=== PATIENT | female | born 1980 | race Caucasian/White ===

== ENCOUNTER 2022-09-10 10:47 | Outpatient (REF) | payer OTHER, SELFPAY ==
[2022-09-10 13:58] LABS: MANUAL DIFF FLAG NO
[2022-09-10 14:18] LABS: Basophils Absolute Auto 0.1 X10*3/uL (0.0-0.2); Basophils Percent Auto 0.8 % (0-2); Eosinophils Absolute Auto 0.1 X10*3/uL (0.0-0.4); Eosinophils Percent Auto 1.9 % (0-4); Hematocrit 43.5 % (37.0-47.0); Hemoglobin 13.9 g/dl (12.0-16.0); Imm Gran Abs Auto 0.18 X10*3/uL (0.00-0.03); Imm Gran Pct Auto 2.8 % (0.0-0.4); Lymphocytes Absolute Auto 2.1 X10*3/uL (1.2-4.9); Lymphocytes Percent Auto 33.8 % (20-40); Mean Corpuscular Hemoglobin 28.6 pg (27.0-33.0); Mean Corpuscular Volume 89.5 fL (80.0-98.0); Mean Platelet Volume 10.4 fL (9.4-12.3); Monocytes Absolute Auto 0.5 X10*3/uL (0.1-1.2); Monocytes Percent Auto 7.3 % (2-11); Neutrophils Absolute Auto 3.4 x10*3/uL (2.0-8.3); Neutrophils Percent Auto 53.4 % (45-73); Platelet Count 305 X10*3/uL (160-400); Red Blood Count 4.86 X10*6/uL (4.20-5.50); Red Cell Distribution Width 12.6 % (11.0-16.0); White Blood Count 6.3 X10*3/uL (4.8-10.8)
[2022-09-10 14:49] LABS: Anion Gap 15 (12-20); Blood Urea Nitrogen 9 mg/dL (9-16); Calcium 9.4 mg/dL (8.4-10.2); Carbon Dioxide 25 mmol/L (22-29); Chloride 104 mmol/L (96-108); Cholesterol 239 mg/dL; Estimated Glomerular Filt Rate > 60; Glucose Fasting 98 mg/dL (60-99); HDL Cholesterol 52 mg/dL; LDL Cholesterol Calculated 159 mg/dl; Potassium 4.4 mmol/L (3.3-5.1); Sodium 140 mmol/L (135-145); Triglycerides 140 mg/dL
== END 2022-09-10 10:48 | disposition home or self-care (01) ==
LOC: HO.HMGCLDS 10:47
PROVIDERS: PCP Internal Medicine; Visit Provider Internal Medicine
DX: E66.01 Morbid (severe) obesity due to excess calories (principal); F32.A Depression, unspecified; F41.9 Anxiety disorder, unspecified; E55.9 Vitamin D deficiency, unspecified
CPT/HCPCS: 36415; 80048; 80061; 82306; 85025

== ENCOUNTER 2025-01-11 13:04 | Outpatient (AMB) | payer OTHER, SELFPAY ==
[2025-01-11 13:07] VITALS: BP 122/76; PULSE 76; RESP 18; TEMP 36.9; O2SAT 97; BMI 42.8
--- NOTE | 2025-01-11 13:07 | A.OFFPC_ITS ---
Vital Signs 01/11/25 13:07 Height 5 ft 2 in Weight 234 lb BMI 42.8 BP 122/76 Blood Pressure Location Rt brachial Position Sitting Respiration 18 Pulse 76 Pulse Source Pulse Oximeter Temp 98.5 F Temp Source Oral Pulse Oximetry (%) 97 Oxygen Delivery Method Room Air Intake Visit Reasons: depression & anxiety Intake Note: Pt is here today for a sick visit. Pt c/o depression and anxeity. Cloud Architect Required: No Allergies morphine Allergy (Verified 01/11/25 13:28) dizzy, sweats almost fainted acetaminophen (Percocet) Adverse Reaction (Unknown, Verified 01/11/25 13:28) stomach upset bupropion Adverse Reaction (Unknown, Verified 01/11/25 13:28) worsening depression symptoms doxycycline Adverse Reaction (Unknown, Verified 01/11/25 13:28) nightmares, GI oxycodone (Percocet) Adverse Reaction (Unknown, Verified 01/11/25 13:28) stomach upset BuPROPion HCl (XL) Adverse Reaction (Unknown, Uncoded 01/11/25 13:28) worsening depression symptoms Medication List - Last Reconciled 01/11/25 by Lakia Lindo MD celecoxib 200 mg PO DAILY cyclobenzaprine 10 mg PO BEDTIME sertraline 37.5 mg (1.5 x 25 mg) PO DAILY 90 days Tobacco use date assessed: 01/11/25 Dental Screening Dental Screen Date: 01/11/25 Did you have a dental visit in the last 12 months?: Yes Did you have a dental problem in the last 6 months where you did not have access to dental care?: No Was dental information given to patient?: Patient has dentist HPI depression & anxiety HPI Details 44-year-old lady with history of anxiety depression, , here today for follow-up. She has been doing well on sertraline 37.5 mg taken once a day. Would like to continue, tolerating medication well with no adverse effects noted. FOR[facility]LY [facility], LATER [facility] Medical History Morbid obesity due to excess calories Anxiety and depression Depression Vitamin D deficiency Surgical History History of ankle surgery Family History Father Bipolar disorder CVD (cardiovascular disease) Hyperlipidemia Mother No problems noted. Maternal Grandfather Mental health disorder Social History Housing: House Alcohol intake: never Patient Tobacco Use Status: Never used Tobacco e-Cigarette/Vaping Use: Never Used service: No Current occupational status: employed Cognitive needs: No Hearing needs: No Vision needs: Yes Questionnaire PHQ-9 Over the last 2 weeks, how often have you been bothered by any of the following problems? 1. Little interest or pleasure in doing things: several days 2. Feeling down, depressed, or hopeless: several days 3. Trouble falling or staying asleep, or sleeping too much: several days 4. Feeling tired or having little energy: several days 5. Poor appetite or overeating: not at all 6. Feeling bad about yourself - or that you are a failure or have let yourself or your family down: not at all 7. Trouble concentrating on things, such as reading the newspaper or watching television: not at all 8. Moving or speaking so slowly that other people could have noticed. Or the opposite - being so fidgety or restless that you have been moving around a lot more than usual: not at all 9. Thoughts that you would be better off or of hurting yourself in some way: not at all Total score: 4 Depression Screening Interpretation: Positive (Improving on sertraline 37.5 mg taken once a day) Depression Screening Follow-up: Existing condition and In treatment Depression Screening Done: Yes 52705 - PHQ-9 Billing: Yes Source: Developed by Drs. King Hinojosa, Nanette Granda, Oneil Beebe and colleagues, with an educational rosales from [employer]. Thrive Questionnaire Date Thrive assessed: 01/11/25 I am a: Patient What is your living situation today?: I have a steady place to live Within the past 12 months, did the food you bought not last and you didn't have the money to get more?: Never true Within the past 12 months, did you worry whether your food would run out before you got money to buy more?: Never true Do you have trouble paying for medicines?: No Do you have trouble getting transportation to medical appointments?: No Do you have trouble paying your heating and electricity bill?: No Do you have trouble taking care of your child, family member or friend?: No Do you have trouble with day-to-day activities such as bathing, preparing meals, shopping, managing finances, etc.?: No Are you currently unemployed and looking for a job?: No Are you interested in more education?: No Please select the resources that you would like help with: None Currently or been in a relationship where the following occur: No concerns reported THRIVE Score: 0 AUDIT C Alcohol Use Questionnaire (AUDIT-C) 1. How often do you have a drink containing alcohol?: Never 3. How often do you have six or more drinks on one occasion?: Never Total Score: 0 Score Reviewed/Action Taken: Yes HARI-7 AMB Questionnaire HARI-7 Date HARI - 7 assessed: 01/11/25 Feeling nervous, anxious, or on edge: 1 = Several days Not being able to stop or control worryin = Not at all Worrying too much about different things: 0 = Not at all Trouble relaxin = Not at all Being so restless that it is hard to sit still: 0 = Not at all Becoming easily annoyed or irritable: 0 = Not at all Feeling afraid as if something awful might happen: 0 = Not at all Total HARI-7 score (0-4 normal; 5-9 mild; 10-14 moderate; 15-21 severe): 1 Source: Developed by Drs. King Hinojosa, Nanette Granda, Oneil Beebe and colleagues, with an educational rosales from [employer]. HARI-7 Assessment Billing HARI-7 Assessment Tool: HARI-7 Assessment 71291 Review of Systems Const All systems reviewed & are unremarkable except as noted in HPI and below Physical exam (Primary Care) Vital Signs: Last Vital Signs Temp 98.5 F 01/11/25 13:07 Pulse 76 01/11/25 13:07 Resp 18 01/11/25 13:07 BP 122/76 01/11/25 13:07 Pulse Ox 97 01/11/25 13:07 Oxygen Delivery Method Room Air 01/11/25 13:07 BMI result Body Mass Index 42.8 BMI Assessment/Plan discussion: High BMI High, discussed plan: lifestyle, weight reduction, dietary and physical activity Tobacco/Smoking Status: Tobacco use Status Tobacco use date assessed 01/11/25 01/11/25 13:08 Patient Tobacco Use Status Never used Tobacco 01/11/25 13:08 e-Cigarette/Vaping Use Never Used 01/11/25 13:08 PHQ-9: PHQ-9 Score PHQ-9: Total score 4 01/11/25 13:43 Depression Screening Interpretation: Positive (Improving on sertraline 37.5 mg taken once a day) Depression Screening Follow-up: Existing condition and In treatment Thrive Assessment: Date of Thrive Assessment Date Thrive assessed 01/11/25 01/11/25 13:08 Currently or been in a relationship where the following occur: No concerns reported Const General: no acute distress Nutritional Appearance: obese morbidly obese Orientation/consciousness: patient oriented x3 HENMT General nose exam: Normal external nose present Mouth: Normal oral and palatal mucosa present, oropharynx normal and moist mucous membranes Eyes General: appearance normal, both eyes and all related structures Neck Neck: Yes full ROM, Yes no lymphadenopathy and Yes supple Resp Effort & Inspection: normal respiratory effort and able to speak in complete sentences Auscultation: clear to auscultation bilaterally Cardio Rate: regular rate Rhythm: regular rhythm Heart sounds: S1 normal heart sound present and S2 normal heart sound present GI Inspection: Yes normal to inspection Palpation (GI): Soft to palpation, nontender, no guarding and no masses Auscultation: normal bowel sounds Other: Sees Dr. Cabrera Neuro General: patient oriented x3, gait normal, moves all extremities and no focal motor deficits Gait exam (Neuro): Normal gait present Extrem General: Yes full ROM, Yes no joint enlargement, Yes no pedal edema and Yes normal gait Psych Appearance: grossly normal and well kempt Mental Status: mental status grossly normal Speech and movement: Normal speech and movement present Affect: normal affect Coding Level of Care Code Est Pt Level 4 (85284) Diagnoses Anxiety and depression F41.9; F32.A Morbid obesity due to excess calories E66.01 Additional Codes HARI-7 Assessment Billing - HARI-7 Assessment Tool: HARI-7 Assessment 43005 ([id number]) PHQ-9 - 48285 - PHQ-9 Billing: Yes ([id number]) Assessment & Plan Assessment & Plan (1) Anxiety and depression: Code(s): F41.9 - Anxiety disorder, unspecified; F32.A - Depression, unspecified Category: Medical Plan: Improvement in mood and anxiety attacks are occurring infrequently, continued on sertraline 37.5 mg taken daily. (2) Morbid obesity due to excess calories: Code(s): E66.01 - Morbid (severe) obesity due to excess calories Category: Medical Plan: Y Discussed need to increase activity and weight reduction. Recommended focusing on improving health instead of dieting. Mediterranean diet is a healthy diet that helps, limit food high in fat, sugar, and calories. Eat slowly, pay attention to portion sizes, plan your meals ahead of time, start regular physical activity, at least 150 minutes of moderate intensity exercise, or 90 minutes per week of vigorous exercise. Keeping a food diary, tracking what you eat and your physical activity can help assess what improvements you can make. Orders: Orders Complete Blood Count Auto Diff 03/19/25 E55.9 - Vitamin D deficiency, unspecified, E66.01 - Morbid (severe) obesity due to excess calories, F32.A - Depression, unspecified, F41.9 - Anxiety disorder, unspecified, Z13.1 - Encounter for screening for diabetes mellitus, Z13.220 - Encounter for screening for lipoid disorders Aspartate Amino Transferase 03/19/25 E55.9 - Vitamin D deficiency, unspecified, E66.01 - Morbid (severe) obesity due to excess calories, F32.A - Depression, unspecified, F41.9 - Anxiety disorder, unspecified, Z13.1 - Encounter for scre ening for diabetes mellitus, Z13.220 - Encounter for screening for lipoid disorders Basic Metabolic Panel Fasting 03/19/25 E55.9 - Vitamin D deficiency, unspecified, E66.01 - Morbid (severe) obesity due to excess calories, F32.A - Depression, unspecified, F41.9 - Anxiety disorder, unspecified, Z13.1 - Encounter for screening for diabetes mellitus, Z13.220 - Encounter for screening for lipoid disorders Alanine Aminotransferase 03/19/25 E55.9 - Vitamin D deficiency, unspecified, E66.01 - Morbid (severe) obesity due to excess calories, F32.A - Depression, unspecified, F41.9 - Anxiety disorder, unspecified, Z13.1 - Encounter for screening for diabetes mellitus, Z13.220 - Encounter for screening for lipoid disorders Lipid Panel 03/19/25 E55.9 - Vitamin D deficiency, unspecified, E66.01 - Morbid (severe) obesity due to excess calories, F32.A - Depression, unspecified, F41.9 - Anxiety disorder, unspecified, Z13.1 - Encounter for screening for diabetes mellitus, Z13.220 - Encounter for screening for lipoid disorders Vitamin D 25-OH Total 03/19/25 E55.9 - Vitamin D deficiency, unspecified, E66.01 - Morbid (severe) obesity due to excess calories, F32.A - Depression, unspecified, F41.9 - Anxiety disorder, unspecified, Z13.1 - Encounter for screening for diabetes mellitus, Z13.220 - Encounter for screening for lipoid disorders Medications: Refilled sertraline 37.5 mg (1.5 x 25 mg) PO DAILY 135 tabs 4RF 90 days F33.0 - Major depressive disorder, recurrent, mild
--- OUTSIDE RECORDS SUMMARY | 2025-01-11 14:15 | XMS_ITS | Clinical Summary ---
Author Organization [facility] Address [address] [place] [address] Phone Care Team Providers Care Senior Research Analyst Name Role Phone Lakia Lindo MD Primary Care Provider Allergies Active Allergy Reactions Criticality Noted Date Comments Doxycycline Nausea And Vomiting, Sleep Issues 11/21/2024 Oxycodone-Acetaminophen Nausea And Vomiting 01/2025 Medications tiZANidine (ZANAFLEX) 2 mg capsule Take 1 capsule (2 mg total) by mouth 3 (three) times a day if needed for muscle spasms for up to 21 doses. 21 capsule 11/21/2024 Active Encounters Date Type Department Care Team Description 11/21/2024 10:10 AM EDT - 11/21/2024 4:07 PM EDT Emergency [facility] Emergency [address] [place] [id number] Vlad Cruz MD Acute right-sided low back pain, unspecified whether sciatica present (Primary Dx) Discharge Disposition: Home or Self Care from Last 3 Months Medical History Medical History Date Comments Depression Social History Tobacco Use Types Packs/Day Years Used Date Smoking Tobacco: Never Assessed Comments Unknown Sex and Gender Information Value Date Recorded Sex Assigned at Not on file Legal Sex Female 8:22 PM EST Gender Identity Not on file Sexual Orientation Not on file Obstetrics History Last Filed Vital Signs Vital Sign Reading Time Taken Comments Blood Pressure 119/71 11/21/2024 3:32 PM EDT Pulse 62 11/21/2024 3:32 PM EDT Temperature 36.8 C (98.2 F) 11/21/2024 3:32 PM EDT Respiratory Rate 18 11/21/2024 3:32 PM EDT Oxygen Saturation 98% 11/21/2024 3:32 PM EDT Inhaled Oxygen Concentration - - Weight 113 kg (250 lb) 11/21/2024 9:51 AM EDT Height 157.5 cm (5' 2 ) 11/21/2024 9:51 AM EDT Body Mass Index 45.73 11/21/2024 9:51 AM EDT Plan of Treatment Health Maintenance Due Date Last Done Comments Breast Cancer Screening 1980 DTaP,Tdap,and Td Vaccines (1 - Tdap) 07/11/1999 Hepatitis B Vaccines (1 of 3 - 19+ 3-dose series) 07/11/1999 Cervical Cancer Screening: Pap Smear 2001 HIV Screening 05/08/2023 Hepatitis C Screening 05/08/2023 Social Influencers of Health Screening 05/08/2023 Depression Screening 04/14/2024 COVID-19 Vaccine ( season) 2024 02/26/2022, 03/26/2021, 06/14/2020, Additional history exists Influenza Vaccine (#1) 2024 , 02/26/2022, 01/19/2021 RSV Immunization Adult Patients (1 - 1-dose 75+ series) 07/11/2055 HIB Vaccines Aged Out No longer eligi ble based on patient's age to complete this topic HPV Vaccines Aged Out No longer eligi ble based on patient's age to complete this topic Hepatitis A Vaccines Aged Out No long er eligible based on patient's age to complete this topic IPV Vaccines Aged Out No longer eligi ble based on patient's age to complete this topic MMR Vaccines Aged Out No longer eligi ble based on patient's age to complete this topic Meningococcal ACWY Vaccine Aged Out N o longer eligible based on patient's age to complete this topic Meningococcal B Vaccine Aged Out No l onger eligible based on patient's age to complete this topic Pneumococcal Vaccine: Pediatrics (0 to 5 Years) and At-Risk Patients (6 to 49 Years) Aged Out No longer eligible based on patient's age to complete this topic RSV Immunization Patients Under 20 months Aged Out No longer eligible based on patient's age to complete this topic Varicella Vaccines Aged Out No longer eligible based on patient's age to complete this topic Procedures Procedure Name Priority Date/Time Associated Diagnosis Comments URINALYSIS WITH REFLEX MICROSCOPIC STAT 11/21/2024 2:33 PM EDT URINALYSIS WITH REFLEX MICROSCOPIC STAT 11/21/2024 2:[address] ABDOMEN PELVIS WO CONTRAST STAT 11/21/2024 12:34 PM EDT CBC WITH AUTO DIFFERENTIAL STAT 11/21/2024 11:06 AM EDT HCG, SERUM, QUALITATIVE STAT 11/21/2024 11:06 AM EDT COMPREHENSIVE METABOLIC PANEL STAT 11/21/2024 11:06 AM EDT CBC AND DIFFERENTIAL STAT 11/21/2024 11:06 AM EDT from Last 3 Months Results * (ABNORMAL) Urinalysis with reflex microscopic (11/21/2024 2:33 PM EDT) Specific [place] Urine 1.016 1.003 - 1.030 LAB URINALYSIS - AUTOMATED METHOD 11/21/2024 3:36 PM EDT [facility] pH, Urine 5.5 5.0 - 8.0 pH LAB URINALYSIS - AUTOMATED METHOD 11/21/2024 3:36 PM T [facility] Leukocytes, Urine Trace(A) Negative LAB URINALYSIS - AUTOMATED METHOD 11/21/2024 3:36 PM [facility] Nitrite, Urine Negative Negative LAB URINALYSIS - AUTOMATED METHOD 11/21/2024 3:36 PM [facility] Protein, Urine 30(A) <=Trace mg/dL LAB URINALYSIS - AUTOMATED METHOD 11/21/2024 3:36 PM [facility] Glucose, Urine Negative Negative mg/dL LAB URINALYSIS - AUTOMATED METHOD 11/21/2024 3:36 PM T [facility] Ketones, Urine Negative Negative mg/dL LAB URINALYSIS - AUTOMATED METHOD 11/21/2024 3:36 PM [facility] Urobilinogen, Urine 0.2 0.2 - 1.0 mg/dL LAB URINALYSIS - AUTOMATED METHOD 11/21/2024 3:36 PM T [facility] Bilirubin, Urine Negative Negative LAB URINALYSIS - AUTOMATED METHOD 11/21/2024 3:36 PM [facility] Blood, Urine Large(A) Negative LAB URINALYSIS - AUTOMATED METHOD 11/21/2024 3:36 PM [facility] RBC, Urine 8.3(H) 0 - 4 /HPF LAB URINALYSIS - AUTOMATED METHOD 11/21/2024 3:36 PM [facility] WBC, Urine 8.0(H) 0 - 4 /HPF LAB URINALYSIS - AUTOMATED METHOD 11/21/2024 3:36 PM [facility] Squamous Epithelial, Urine 46 0 - 60 /LPF LAB URINALYSIS - AUTOMATED METHOD 11/21/2024 3:36 PM [facility] Bacteria, Urine Negative Negative /HPF LAB URINALYSIS - AUTOMATED METHOD 11/21/2024 3:36 PM [facility] Hyaline Casts, Urine 2.4 0 - 3 /LPF LAB URINALYSIS - AUTOMATED METHOD 11/21/2024 3:36 PM [facility] Urine Urine specimen obtained by clean catch procedure / Unknown Non-blood Collection / Unknown 11/21/2024 2:33 PM EDT 11/21/2024 3:07 PM EDT us Vlad Cruz MD LAB URINE ORDERABLES Final Result [facility] [address] [place] [address], [place] [phone] * CT Abdomen Pelvis wo Contrast (11/21/2024 12:34 PM EDT) Anatomical Region Laterality Modality Body Computed Tomogra phy 11/21/2024 1:42 PM EDT Impressions 11/21/2024 1:47 PM EDT No renal collecting system calculus. No acute findings. -------- FINAL REPORT -------- Dictated By: Williams Overton Dictated Date: 11/21/2024 13:42 ET Assigned Physician: Williams Overton Reviewed and Electronically Signed By: Williams Overton Signed Date: 11/21/2024 13:47 ET Workstation ID: [id number] Transcribed By: Self Edit Transcribed Date: 11/21/2024 13:42 ET Narrative 11/21/2024 1:47 PM EDT PROCEDURE: CT of the abdomen and pelvis without intravenous contrast. HISTORY: Flank pain, kidney stone suspected. COMPARISON: TECHNIQUE: Noncontrast CT of the abdomen and pelvis with coronal and sagittal reformats. Dose length product: 1259 mGy-cm. FINDINGS: Lung bases: Linear bands of scarring or atelectasis in the right middle lobe and lingula. Cardiac: Normal. Liver: Limited evaluation without intravenous contrast. Small cyst in the anterior left lobe. Biliary: Normal gallbladder and biliary tree. Pancreas: Limited evaluation without intravenous contrast. No visible abnormality. Spleen: Limited evaluation without intravenous contrast. No visible abnormality. Adrenal glands: 1.9 cm fat-containing left adrenal adenoma. Kidneys: Limited evaluation without intravenous contrast. No visible abnormality. Normal appearance of the ureters. Retroperitoneum: No mass or adenopathy. Abdominal vasculature: Normal. Bowel/mesentery: No obstruction or adenopathy. No mass or ascites. Abdominal wall: Normal. Pelvic nodes: No adenopathy. Pelvic organs: Prominent uterus. No focal uterine lesion evident on this noncontrast exam. Bones: Minimal degenerative changes of the spine, symphysis, and SI joints. Procedure Note Williams Overton MD - 11/21/2024 PROCEDURE: CT of the abdomen and pelvis without intravenous contrast. HISTORY: Flank pain, kidney stone suspected. COMPARISON: TECHNIQUE: Noncontrast CT of the abdomen and pelvis with coronal andsagittal reformats. Dose length product: 1259 mGy-cm. FINDINGS: Lung bases: Linear bands of scarring or atelectasis in the right middlelobe and lingula. Cardiac: Normal. Liver: Limited evaluation without intravenous contrast. Small cyst in theanterior left lobe. Biliary: Normal gallbladder and biliary tree. Pancreas: Limited evaluation without intravenous contrast. No visibleabnormality. Spleen: Limited evaluation without intravenous contrast. No visibleabnormality. Adrenal glands: 1.9 cm fat-containing left adrenal adenoma. Kidneys: Limited evaluation without intravenous contrast. No visibleabnormality. Normal appearance of the ureters. Retroperitoneum: No mass or adenopathy. Abdominal vasculature: Normal. Bowel/mesentery: No obstruction or adenopathy. No mass or ascites. Abdominal wall: Normal. Pelvic nodes: No adenopathy. Pelvic organs: Prominent uterus. No focal uterine lesion evident on thisnoncontrast exam. Bones: Minimal degenerative changes of the spine, symphysis, and SIjoints. IMPRESSION: No renal collecting system calculus. No acute findings. -------- FINAL REPORT -------- Dictated By: Williams Overton Dictated Date: 11/21/2024 13:42 ET Assigned Physician: Williams Overton Reviewed and Electronically Signed By: Williams Overton Signed Date: 11/21/2024 13:47 ET Workstation ID: [id number] Transcribed By: Self Edit Transcribed Date: 11/21/2024 13:42 ET us Vlad Cruz MD [facility] CT PROCEDURES Final Res ult * (ABNORMAL) CBC auto differential (11/21/2024 11:06 AM EDT) WBC 6.0 4.8 - 10.8 K/[facility] HEMETOLOGY METHOD 11/21/2024 11:34 AM EDT [facility] RBC 4.90(H) 3.80 - 4.80 M/[facility] LAB HEMETOLOGY METHOD 11/21/2024 11:34 AM [facility] Hemoglobin 14.0 11.5 - 16.0 g/dL LAB HEMETOLOGY METHOD 11/21/2024 11:34 AM [facility] Hematocrit 43.0 35.0 - 47.0 % LAB HEMETOLOGY METHOD 11/21/2024 11:34 AM [facility] MCV 87.0 79.0 - 98.0 FL LAB HEMETOLOGY METHOD 11/21/2024 11:34 AM [facility] MCH 28.3 27.0 - 32.0 pcg LAB HEMETOLOGY METHOD 11/21/2024 11:34 AM [facility] MCHC 32.6 32.0 - 37.0 g/dL LAB HEMETOLOGY METHOD 11/21/2024 11:34 AM [facility] RDW 12.4 11.0 - 15.0 % LAB HEMETOLOGY METHOD 11/21/2024 11:34 AM [facility] Platelets 287 130 - 400 K/[facility] LAB HEMETOLOGY METHOD 11/21/2024 11:34 AM [facility] MPV 9.9 7.0 - 11.0 FL LAB HEMETOLOGY METHOD 11/21/2024 11:34 AM [facility] NRBC 0.0 <1.0 % LAB HEMETOLOGY METHOD 11/21/2024 11:34 AM [facility] NRBC Absolute 0.00 <0.10 K/mcL LAB HEMETOLOGY METHOD 11/21/2024 11:34 AM [facility] Neutrophils Relative 55.9 % LAB HEMETOLOGY METHOD 11/21/2024 11:34 AM [facility] Lymphocytes Relative 28.8 % LAB HEMETOLOGY METHOD 11/21/2024 11:34 AM EDT [facility] Monocytes Relative 7.7 % LAB HEMETOLOGY METHOD [facility]24 [facility] Eosinophils Relative 2.8 % LAB HEMETOLOGY METHOD 11/21/2024 11:34 AM [facility] Basophils Relative 1.0 % LAB HEMETOLOGY METHOD 11/21/2024 11:34 AM [facility] Immature Granulocytes Relative 3.8 % LAB HEMETOLOGY METHOD 11/21/2024 11:34 AM [facility] Neutrophils Absolute 3.36 1.50 - 7.00 K/mcL LAB HEMETOLOGY METHOD 11/21/2024 11:34 AM [facility] Lymphocytes Absolute 1.73 1.00 - 5.00 K/mcL LAB HEMETOLOGY METHOD 11/21/2024 11:34 AM [facility] Monocytes Absolute 0.46 0.20 - 1.00 K/mcL LAB HEMETOLOGY METHOD 11/21/2024 11:34 AM [facility] Eosinophils Absolute 0.17 0.00 - 0.50 K/mcL LAB HEMETOLOGY METHOD 11/21/2024 11:34 AM [facility] Basophils Absolute 0.06 0.00 - 0.20 K/mcL LAB HEMETOLOGY METHOD 11/21/2024 11:34 AM [facility] Immature Granulocytes Absolute 0.23(H) 0.00 - 0.03 K/mcL LAB HEMETOLOGY METHOD 11/21/2024 11:34 AM [facility] Blood Venous blood specimen / Unknown Venipuncture / Unknown 11/21/2024 11:06 AM EDT 11/21/2024 11:26 AM EDT us Vlad Cruz MD LAB BLOOD ORDERABLES Final Result [facility] [address] [place] [address], [place] [phone] * hCG, serum, qualitative (11/21/2024 11:06 AM EDT) [facility] hCG Qual Negative Negative 11/21/2024 11:51 AM EDT [facility] Blood Venous blood specimen / Unknown Venipuncture / Unknown 11/21/2024 11:06 AM EDT 11/21/2024 11:27 AM EDT Vlad Cruz MD LAB BLOOD ORDERABLES Final Result [facility] [address] [place] [address], [place] [phone] * Comprehensive metabolic panel (11/21/2024 11:06 AM EDT) [facility] Sodium 139 133 - 145 mmol/L LAB CHEMISTRY METHOD 11/21/2024 11:55 AM [facility] Potassium 4.3 3.5 - 5.5 mmol/L LAB CHEMISTRY METHOD 11/21/2024 11:55 AM [facility] Chloride 106 96 - 110 mmol/L LAB CHEMISTRY METHOD 11/21/2024 11:55 AM [facility] CO2 28 21 - 32 mmol/L LAB CHEMISTRY METHOD 11/21/2024 11:55 AM [facility] Anion Gap 5 3 - 11 LAB CHEMISTRY METHOD 11/21/2024 11:55 AM [facility] Glucose 96 70 - 100 mg/dL LAB CHEMISTRY METHOD 11/21/2024 11:55 AM [facility] BUN 11 5 - 25 mg/dL LAB CHEMISTRY METHOD 11/21/2024 11:55 AM [facility] Creatinine 0.63 0.50 - 1.10 mg/dL LAB CHEMISTRY METHOD 11/21/2024 11:55 AM [facility] eGFR 112 >=60 mL/min/1. 73m2 LAB CHEMISTRY METHOD 11/21/2024 11:55 AM [facility] Comment:Calculation based on the Chronic Kidney Disease Epidemiology Collaboration (CKD-EPI) equation refit without adjustment for race. BUN/Creatinine Ratio 17.5 LAB CHEMISTRY METHOD 11/21/2024 11:55 AM [facility] Calcium 9.0 8.5 - 10.5 mg/dL LAB CHEMISTRY METHOD 11/21/2024 11:55 AM [facility] AST (SGOT) 15 10 - 42 unit/L LAB CHEMISTRY METHOD 11/21/2024 11:55 AM [facility] ALT (SGPT) 14 10 - 60 unit/L LAB CHEMISTRY METHOD 11/21/2024 11:55 AM [facility] Alkaline Phosphatase 83 42 - 121 unit/L LAB CHEMISTRY METHOD 11/21/2024 11:55 AM [facility] Total Protein 6.7 6.0 - 8.0 g/dL LAB CHEMISTRY METHOD 11/21/2024 11:55 AM [facility] Albumin 3.9 3.2 - 5.0 g/dL LAB CHEMISTRY METHOD 11/21/2024 11:55 AM [facility] Total Bilirubin 0.3 0.0 - 1.4 mg/dL LAB CHEMISTRY METHOD 11/21/2024 11:55 AM [facility] Blood Venous blood specimen / Unknown Venipuncture / Unknown 11/21/2024 11:06 AM EDT 11/21/2024 11:26 AM EDT us Vlad Cruz MD LAB BLOOD ORDERABLES Final Result [facility] [address] [place] [address], from Last 3 Months Insurance [facility] MEDICAID ADVANTAGE Care Teams Senior Research Analyst Relationship Specialty Start Date End Date Lakia Lindo MD [address] [place] [address] PCP - General Internal Medicine 11/21/24
--- OUTSIDE RECORDS SUMMARY | 2025-01-11 14:15 | XMS_ITS | Encounter Summary ---
Author Organization [facility] Address [address] [place] [id number] Care Team Providers Care Hand Tier Name Role Phone Provider, Unknown Primary Care Provider [id number] Geena Damico MD Primary Care Provider Unava ilable Encounter Details Date Type Department Care Team (Late st Contact Info) Description 01/12/2015 Scanned Document [address] [phone] Provider, Generic Social History Tobacco Use Types Packs/Day Years Used Date Smoking Tobacco: Never Alcohol Use Standard Drinks/Week Comments Not Asked 0 (1 standard drink = 0.6 oz pur e alcohol) Comments Unknown Sex and Gender Information Value Date Recorded Sex Assigned at Not on file Legal Sex Female 4:39 PM EDT Gender Identity Not on file Sexual Orientation Not on file documented as of this encounter Plan of Treatment Not on file documented as of this encounter Visit Diagnoses Not on filedocumented in this encounter Care Teams Hand Tier Relationship Specialty Start Date End Date Provider, Unknown 1 DO NOT USE THIS RECORD PCP - General 12/27/14 06/11/15 Geena Damico MD 1 DO NOT USE THIS RECORD PCP - General Emergency Medicine 06/12/15 documented as of this encounter
--- OUTSIDE RECORDS SUMMARY | 2025-01-11 14:15 | XMS_ITS | Clinical Summary ---
Author Organization [facility] Address [address] [place] [address] Care Team Providers Care Division Road Supervisor Name Role Phone Geena Damico MD Primary Care Provider Unava ilable Allergies Active Allergy Reactions Criticality Noted Date Comments Oxycodone-Acetaminophen GI Intolerance/Nausea/Vomiting Low 12/28/2014 Medications sertraline (ZOLOFT) 50 MG tablet Take 50 mg by mouth daily. Active amoxicillin-clav ulanate (AUGMENTIN) 875-125 MG per tabletIndication s:Acute frontal sinusitis, recurrence not specified Take 1 tablet by mouth 2 (two) times a day. 20 tablet 0 06/12/2015 Active albuterol (PROVENTIL HFA; VENTOLIN HFA) 108 (90 BASE) MCG/ACT inhalerIndicatio ns:Acute frontal sinusitis, recurrence not specified Inhale 2 puffs 4 times daily (every 6 hours) as needed for wheezing. 1 Inhaler 0 06/12/2015 Active Active Problems Problem Noted Date Diagnosed Date Ear pain 12/28/2014 Postauricular pain 12/28/2014 History of ear infection 12/28/2014 Social History Tobacco Use Types Packs/Day Years Used Date Smoking Tobacco: Never Alcohol Use Standard Drinks/Week Comments Not Asked 0 (1 standard drink = 0.6 oz pur e alcohol) Comments Unknown Sex and Gender Information Value Date Recorded Sex Assigned at Not on file Legal Sex Female 4:39 PM EDT Gender Identity Not on file Sexual Orientation Not on file Last Filed Vital Signs Vital Sign Reading Time Taken Comments Blood Pressure 120/70 06/12/2015 9:09 AM EST Pulse 80 06/12/2015 9:09 AM EST Temperature 36.9 C (98.5 F) 06/12/2015 9:09 AM EST Respiratory Rate 14 06/12/2015 9:09 AM EST Oxygen Saturation - - Inhaled Oxygen Concentration - - Weight 87.5 kg (193 lb) 12/28/2014 1:39 PM EDT Height 157.5 cm (5' 2 ) 12/28/2014 1:39 PM EDT Body Mass Index 35.3 12/28/2014 1:39 PM EDT Plan of Treatment Health Maintenance Due Date Last Done Comments Hepatitis C Virus Screening 1980 HIV Screening 1993 DTaP/Tdap/Td Vaccines (1 - Tdap) 07/11/1999 Hepatitis B Vaccines (1 of 3 - 19+ 3-dose series) 07/11/1999 Pap Smear (Ages 21-65) 2001 HPV Vaccines (1 - 3-dose SCD M series) 07/11/2007 Mammogram 2020 Influenza Vaccine 11/12/2024 COVID-19 Vaccine (1 - 2023-2 5 season) 2024 Pneumococcal Vaccine: Pediat marcus (0-5 Years) and At-Risk Patients (6 to 49 Years) Aged Out No longer eligible b ased on patient's age to complete this topic Insurance [facility] Care Teams Division Road Supervisor Relationship Specialty Start Date End Date Geena Damico MD PCP - General Emergency Medicine 06/12/15
== END 2025-01-11 16:00 | disposition home or self-care (01) ==
LOC: HO.HMCC 13:05
PROVIDERS: PCP Internal Medicine; Visit Provider Internal Medicine
DX: F41.9 Anxiety disorder, unspecified (principal); E66.01 Morbid (severe) obesity due to excess calories; Z68.41 Body mass index [BMI] 40.0-44.9, adult; F32.A Depression, unspecified

== ENCOUNTER → 2025-01-11 13:04 | Outpatient (BNVA) | payer OTHER, SELFPAY | PROVIDERS: PCP Internal Medicine; Visit Provider Internal Medicine | DX: E66.01 Morbid (severe) obesity due to excess calories (principal); F32.A Depression, unspecified; E55.9 Vitamin D deficiency, unspecified; Z68.41 Body mass index [BMI] 40.0-44.9, adult | CPT/HCPCS: 96127 ==

== ENCOUNTER 2025-03-21 08:45 | Outpatient (REF) | payer OTHER, SELFPAY ==
[2025-03-21 10:47] LABS: MANUAL DIFF FLAG NO
[2025-03-21 11:24] LABS: Hematocrit 43.1 % (37.0-47.0); Hemoglobin 14.0 g/dl (12.0-16.0); Imm Gran Abs Auto 0.13 X10*3/uL (0.00-0.03); Imm Gran Pct Auto 2.0 % (0.0-0.4); Lymphocytes Absolute Auto 2.5 X10*3/uL (1.2-4.9); Mean Corpuscular HGB Conc 32.5 g/dl (31.0-35.0); Mean Corpuscular Hemoglobin 28.8 pg (27.0-33.0); Mean Corpuscular Volume 88.7 fL (80.0-98.0); NRBC Abs Auto 0.000 X10*3/uL (0.0-0.012); NRBC Pct Auto 0.0 /100WBC (0.0-0.2); Platelet Count 297 X10*3/uL (160-400); Red Blood Count 4.86 X10*6/uL (4.20-5.50); White Blood Count 6.6 X10*3/uL (4.8-10.8)
[2025-03-21 11:42] LABS: Alanine Aminotransferase 17 U/L (0-31); Anion Gap 12 (12-20); Aspartate Amino Transferase 19 U/L (5-31); Blood Urea Nitrogen 9 mg/dL (9-16); Calcium 8.9 mg/dL (8.4-10.2); Carbon Dioxide 27 mmol/L (22-29); Chloride 105 mmol/L (96-108); Cholesterol 220 mg/dL (<200); Estimated Glomerular Filt Rate > 60; HDL Cholesterol 53 mg/dL (>40); Potassium 4.1 mmol/L (3.3-5.1); Sodium 140 mmol/L (135-145); Triglycerides 130 mg/dL (<150)
== END 2025-03-21 08:46 | disposition home or self-care (01) ==
LOC: HO.HMGCLDS 08:45
PROVIDERS: PCP Internal Medicine; Visit Provider Internal Medicine
DX: Z13.220 Encounter for screening for lipoid disorders (principal); Z13.1 Encounter for screening for diabetes mellitus; F41.8 Other specified anxiety disorders; E55.9 Vitamin D deficiency, unspecified; E66.01 Morbid (severe) obesity due to excess calories
CPT/HCPCS: 36415; 80048; 80061; 82306; 84450; 84460; 85025

== ENCOUNTER 2025-03-22 12:58 | Outpatient (AMB) | payer OTHER, SELFPAY ==
[2025-03-22 13:06] VITALS: BMI 42.2
--- NOTE | 2025-03-22 13:06 | A.PHYSOV_ITS ---
Vital Signs 03/22/25 13:06 Height 5 ft 2 in Weight 231 lb BMI 42.2 Intake Visit Reasons: NPV NEOS Ref-eval for back injection Intake Note: Patient is a 44 year old female in office today as new patient for back injection evaluation. 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 Allergies morphine Allergy (Verified 03/22/25 13:08) dizzy, sweats almost fainted acetaminophen (Percocet) Adverse Reaction (Unknown, Verified 03/22/25 13:08) stomach upset bupropion Adverse Reaction (Unknown, Verified 03/22/25 13:08) worsening depression symptoms doxycycline Adverse Reaction (Unknown, Verified 03/22/25 13:08) nightmares, GI oxycodone (Percocet) Adverse Reaction (Unknown, Verified 03/22/25 13:08) stomach upset BuPROPion HCl (XL) Adverse Reaction (Unknown, Uncoded 01/11/25 13:28) worsening depression symptoms HPI Comments Details: History of Present Illness The patient is a 44 year old female presenting for evaluation and management of low back pain. She reports an acute onset of severe, sharp low back pain in early November after bending down to pick something up, which prompted a visit to the emergency room. The pain is consistently located on the right side and is sometimes accompanied by a pinching sensation that radiates down the right sciatic nerve path, causing numbness in three of her right-sided toes. She also reports feeling as if she is going to have a muscle spasm. A lumbar spine MRI from February 17, 2025, revealed degenerative disc disease, a bulging disc, a herniated disc, and retrolisthesis. Specific findings included a 4 mm right foraminal disc protrusion at L3-4 impinging the L3 nerve root, mild degenerative retrolisthesis, and at L4-5, mild retrolisthesis with a bulging disc and mild to moderate biforaminal stenosis. Her pain is exacerbated by walking, sitting, and cold temperatures, and she recently had a flare-up after bending over incorrectly. She finds relief with swimming, which she does daily, and has also received acute care registered nurse since November, which she feels helps relieve pressure. She has been attending physical therapy twice a week since the end of December. She is currently taking Celebrex for inflammation and occasionally uses cyclobenzaprine for muscle spasms. She is concerned about taking Celebrex as she and her partner are trying to start a family. The patient was previously very athletic and is currently on medical leave from her job, which involves physical tasks like lifting heavy boxes. I reviewed the referring provider's no prior to consultation. Pain Description - Onset: The patient experienced an acute onset of super sharp low back pain in early November after bending down. - Location: The pain is always on the right side of her low back. - Radiation: The pain sometimes has a pinching character that radiates down the right sciatic nerve and also comes across another nerve path and up her back. - Associated Symptoms: Radiation is associated with numbness in three toes on her right foot. - Quality: She describes the pain as a pinching feeling and feels as though she is going to have a muscle spasm. - Severity: Her pain today is a 3/10; the worst pain recently was an 8/10 about three days ago after tweaking her back. - Severity: Walking can increase her pain to a 6/10. - Pattern: She has good and bad days. - Exacerbating Factors: Pain is worsened by walking, sitting for long periods, cold temperatures, and bending over improperly. - Relieving Factors: Swimming and acute care registered nurse help alleviate her symptoms. - Interference: The pain has limited her physical activity and she is currently on medical leave from work. [facility] Medical History Morbid obesity due to excess calories Anxiety and depression Depression Vitamin D deficiency Surgical History History of ankle surgery Family History Father Bipolar disorder CVD (cardiovascular disease) Hyperlipidemia Mother No problems noted. Maternal Grandfather Mental health disorder Social History Housing: House Alcohol intake: never Patient Tobacco Use Status: Never used Tobacco e-Cigarette/Vaping Use: Never Used service: No Current occupational status: employed Cognitive needs: No Hearing needs: No Vision needs: Yes Review of Systems Narrative Review of Systems - Musculoskeletal: Reports sharp low back pain, always on the right side. - Musculoskeletal: Reports feeling of impending muscle spasms. - Neurological: Reports a pinching sensation in her back that radiates down her right leg along the sciatic nerve. - Neurological: Reports numbness in three toes on her right foot associated with the radiating pain. Physical Exam Exam Exam: Physical Exam - Back: Tenderness to palpation over the right low back. - Back: Lumbar extension and forward flexion both provoke back pain. - Neurologic: Right straight leg raise reproduces back pain. - Neurologic: Left straight leg raise produces less tension than the right. - Neurologic: Right hip flexion against resistance provokes pain. - Neurologic: Left hip flexion against resistance is non-painful. - Neurologic: Sensation to touch is intact in the leg without noted deficits on exam. Vital Signs: BMI result Body Mass Index 42.2 Assessment & Plan Assessment & Plan (1) Lumbar radiculopathy: Code(s): M54.16 - Radiculopathy, lumbar region Category: Medical (2) Lumbar spondylosis: Code(s): M47.816 - Spondylosis without myelopathy or radiculopathy, lumbar region Category: Medical Plan Pain Management - Affect: The patient is on medical leave from work and is motivated to get better to return to her job and previous active lifestyle. - Analgesia: She currently takes Celebrex for inflammation and cyclobenzaprine occasionally for muscle spasms. - Analgesia: Her pain level is currently a 3/10 but was recently an 8/10 and can be a 6/10 with walking. - Adverse Effects: She is concerned about being on Celebrex as she is trying to conceive. - Activities of Daily Living: The pain has limited her ability to perform her usual physical activities and her work, which can be physically demanding. - Activities of Daily Living: She has had to give up yoga but swims daily. - Aberrant Drug Related Behaviors: There are no signs of aberrant drug-related behaviors. Plan Patient was informed and verbally consented to the use of an ambient scribe for clinic note documentation during this visit. 1. Lumbar Degenerative Disc Disease With Radiculopathy The patient's symptoms of right-sided low back pain with radiculopathy are consistent with her MRI findings of disc protrusion at L3-4 impinging the right L3 nerve root and a bulging disc with stenosis at L4-5. She has trialed extensive conservative measures, including physical therapy, acute care registered nurse, and NSAIDs, with incomplete relief. Due to her desire to become , long- term oral anti-inflammatory use is not ideal. Plan is to consider lumbar epidural steroid injections (RADHA) to reduce inflammation and pain. The goal is to achieve at least a 50% reduction in pain for 3 to 6 months to improve her quality of life and function. Recommended targeting both the right L3 and right L4 nerve roots, as both levels are problematic. It was explained that this is not a cure and does not shrink the disc but serves as a therapeutic tool. Discussed procedural risks (infection, bleeding, nerve damage) and benefits (targeted anti-inflammatory effect, potential for significant pain relief). Options for the procedure (awake in-office vs. under sedation at the hospital) were reviewed. The patient will consider the options and contact the office to schedule if she decides to proceed. Emphasized the need to continue practicing proper body mechanics even with pain improvement. Surgery is not recommended at this time. Discussion Notes I discussed the patient's diagnosis of lumbar degenerative disc disease with radiculopathy, explaining that her MRI findings at L3-4 and L4-5 correspond to her right-sided symptoms. We reviewed her extensive history of conservative treatments and noted that the next logical step would be lumbar epidural steroid injections. I explained that the goal of the injection is not to cure the underlying problem or shrink the disc, but to decrease inflammation, with the hope of achieving at least 50% pain relief for 3-6 months to improve her quality of life. I recommended targeting both the right L3 and L4 nerve roots to address both levels of pathology shown on her MRI. We discussed procedural risks, including a small risk of infection, bleeding, or nerve damage, and benefits of targeted pain control. I also explained the long-term risk of tissue degradation with numerous shots and why we limit them. I detailed the options of having the procedure awake in the office, which is quicker to schedule, versus under sedation in the hospital, which is more comfortable but has more logistical delays. I emphasized that even if the injection is successful, she must continue to live her life as if she has a bad back, practicing mindful movements and proper body mechanics to prevent re- injury. The patient and her family will take time to consider this information and will contact the office with their decision. Patient Instructions - Your back pain is caused by wear and tear on the discs in your lower back, which are pressing on nerves. - Continue with activities that help your pain, like swimming, but be mindful of things that make it worse, like prolonged sitting or improper bending. - We discussed an epidural steroid injection (cortisone shot) as the next step to reduce inflammation and pain. - This injection is not a cure, but a tool to help manage your pain and improve your ability to function. - Even if you feel better after the shot, you must continue to protect your back by using good posture and proper lifting techniques. - The risks of the procedure are low, but include infection, bleeding, and nerve irritation; the most likely negative outcome is that the shot may not work. - You can choose to have the injection while you are awake in our office or while you are asleep at the hospital. - Please take some time to discuss this with your family and call our office to let us know your decision. - You should not take anti-inflammatory medications like Celebrex if you become . Coding Level of Care Code Tele New Pt Level 4 (93488) Diagnoses Lumbar radiculopathy M54.16 Lumbar spondylosis M47.816
== END 2025-03-22 14:08 | disposition home or self-care (01) ==
LOC: HO.HPHYS 12:59
PROVIDERS: PCP Internal Medicine; Visit Provider Physician Assistant
DX: M54.16 Radiculopathy, lumbar region (principal); M47.816 Spondylosis without myelopathy or radiculopathy, lumbar region
CPT/HCPCS: 99204

== ENCOUNTER 2025-03-23 11:28 | Outpatient (AMB) | payer OTHER, SELFPAY ==
[2025-03-23 12:15] VITALS: BP 120/90; PULSE 78; RESP 16; TEMP 36.9; O2SAT 95; BMI 42.2
--- NOTE | 2025-03-23 12:15 | MHC.PC.OV ---
Vital Signs 03/23/25 12:15 Height 5 ft 2 in Weight 231 lb BMI 42.2 BP 120/90 H Blood Pressure Location Lt brachial Position Sitting Respiration 16 Pulse 78 Pulse Source Pulse Oximeter Temp 98.5 F Temp Source Oral Pulse Oximetry (%) 95 Oxygen Delivery Method Room Air Intake Visit Reasons: Annual PE Intake Note: Pt is here today for her PE Front Line Supervisor Required: No Allergies morphine Allergy (Verified 03/23/25 12:30) dizzy, sweats almost fainted acetaminophen (Percocet) Adverse Reaction (Unknown, Verified 03/23/25 12:30) stomach upset bupropion Adverse Reaction (Unknown, Verified 03/23/25 12:30) worsening depression symptoms doxycycline Adverse Reaction (Unknown, Verified 03/23/25 12:30) nightmares, GI oxycodone (Percocet) Adverse Reaction (Unknown, Verified 03/23/25 12:30) stomach upset BuPROPion HCl (XL) Adverse Reaction (Unknown, Uncoded 03/23/25 12:30) worsening depression symptoms Medication List - Last Reconciled 03/23/25 by Lakia Lindo MD celecoxib 200 mg PO DAILY cyclobenzaprine 10 mg PO BEDTIME sertraline 37.5 mg (1.5 x 25 mg) PO DAILY 90 days Tobacco use date assessed: 03/23/25 Dental Screening Dental Screen Date: 03/23/25 Did you have a dental visit in the last 12 months?: Yes Did you have a dental problem in the last 6 months where you did not have access to dental care?: No Was dental information given to patient?: Patient has dentist HPI Annual PE HPI Details The patient is a 44 year old female presenting for her physical exam. She reports her last Pap smear was in June and was normal. A uterine fibroid was incidentally found on an MRI, reportedly measuring up to 10 cm. She has a lifelong history of heavy menstrual bleeding but considers it her normal. The fibroid is located outside the uterus and is not causing any symptoms such as cramping. The patient is actively trying to conceive and has never had children, though her partner has had three viable pregnancies. She recently consulted with [facility] and was told the fibroid is not expected to affect fertility. She has decided against IVF but plans to try medication to stimulate ovulation. Regarding her back, she has had persistent swelling and has been seeing a fuller brush man and an orthopedic surgeon, Dr. Schwarz. It has been suggested that she receive two cortisone shots in her back to reduce swelling, and she has had unsuccessful cortisone shots in her ankle previously. Surgery is considered a last resort. Recent lab work shows a fasting blood sugar of 103 mg/dL, indicating prediabetes, an increase from 98 mg/dL two years ago. Her cholesterol has decreased but remains above the goal of 100 mg/dL, while her vitamin D level is normal. The patient is not anemic and has normal electrolytes and kidney function. For exercise, she swims four days a week at [employer] and also uses an inversion table at home. She is enrolled in a weight loss program and is interested in an anti-inflammatory diet. 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 [facility] Medical History (Updated 04/03/25 @ 19:29 by Lakia Lindo MD) Impaired fasting glucose Hyperlipidemia Morbid obesity due to excess calories Anxiety and depression Depression Vitamin D deficiency Surgical History History of ankle surgery Family History Father Bipolar disorder CVD (cardiovascular disease) Hyperlipidemia Mother No problems noted. Maternal Grandfather Mental health disorder Social History Housing: House Alcohol intake: never Patient Tobacco Use Status: Never used Tobacco e-Cigarette/Vaping Use: Never Used service: No Current occupational status: employed Cognitive needs: No Hearing needs: No Vision needs: Yes Questionnaire PHQ-9 Over the last 2 weeks, how often have you been bothered by any of the following problems? Depression Screening Interpretation: Positive (Improving on sertraline 37.5 mg taken once a day) Depression Screening Follow-up: Existing condition and In treatment Depression Screening Done: Yes Source: Developed by Drs. King Hinojosa, Nanette Granda, Oneil Beebe and colleagues, with an educational rosales from [employer]. Thrive Questionnaire Date Thrive assessed: 01/11/25 I am a: Patient What is your living situation today?: I have a steady place to live Within the past 12 months, did the food you bought not last and you didn't have the money to get more?: Never true Within the past 12 months, did you worry whether your food would run out before you got money to buy more?: Never true Do you have trouble paying for medicines?: No Do you have trouble getting transportation to medical appointments?: No Do you have trouble paying your heating and electricity bill?: No Do you have trouble taking care of your child, family member or friend?: No Do you have trouble with day-to-day activities such as bathing, preparing meals, shopping, managing finances, etc.?: No Are you currently unemployed and looking for a job?: No Are you interested in more education?: No Please select the resources that you would like help with: None Currently or been in a relationship where the following occur: No concerns reported THRIVE Score: 0 HARI-7 AMB Questionnaire HARI-7 Date HARI - 7 assessed: 01/11/25 Source: Developed by Drs. King Hinojosa, Nanette Granda, Oneil Beebe and colleagues, with an educational rosales from [employer]. Review of Systems Narrative - Neurological: Reports numbness in three toes on her right foot associated with the radiating pain. Const Denies difficulty sleeping, Denies headache(s), Denies lethargy, Denies malaise and Reports weight gain Eyes Details: Goes to [facility], now sees Dr. Brink Reports no additional complaints ENT Denies dizziness, Denies headache(s) and Denies disequilibrium Card Denies chest pain, Denies rapid heart rate, Denies irregular heart rhythm and Denies dyspnea Resp Denies chest congestion, Denies cough and Denies dyspnea GI Denies change in bowel habits, Denies heartburn and Denies nausea Reports no additional complaints and Denies nipple discharge Musc Details: Reports sharp low back pain, always on the right side Denies muscle weakness, Reports numbness (in three toes on her right foot associated with the radiating pain.) and Reports stiffness Skin/Breast Denies breast swelling, Denies breast pain, Denies breast mass, Denies alopecia and Denies nipple discharge Neuro Denies dizziness, Denies headache(s), Reports numbness (in three toes on her right foot associated with the radiating pain.) and Denies disequilibrium Psych Denies panic attacks, Denies homicidal ideation and Denies suicidal ideation Endo Reports no additional complaints Mulugeta/Lymph Reports no additional complaints Aller/Immun Reports seasonal rhinorrhea Physical exam (Primary Care) Vital Signs: Last Vital Signs Temp 98.5 F 03/23/25 12:15 Pulse 78 03/23/25 12:15 Resp 16 03/23/25 12:15 BP 120/90 H 03/23/25 12:15 Pulse Ox 95 03/23/25 12:15 Oxygen Delivery Method Room Air 03/23/25 12:15 BMI result Body Mass Index 42.2 BMI Assessment/Plan discussion: High BMI High, discussed plan: lifestyle, weight reduction, dietary and physical activity Tobacco/Smoking Status: Tobacco use Status Tobacco use date assessed 03/23/25 03/23/25 12:20 Patient Tobacco Use Status Never used Tobacco 03/23/25 12:20 e-Cigarette/Vaping Use Never Used 03/23/25 12:20 Depression Screening Interpretation: Positive (Improving on sertraline 37.5 mg taken once a day) Depression Screening Follow-up: Existing condition and In treatment Thrive Assessment: Date of Thrive Assessment Date Thrive assessed 01/11/25 03/23/25 12:20 Currently or been in a relationship where the following occur: No concerns reported Const General: no acute distress Nutritional Appearance: obese morbidly obese Orientation/consciousness: patient oriented x3 [facility] General nose exam: Normal external nose present Mouth: Normal oral and palatal mucosa present, oropharynx normal and moist mucous membranes Eyes General: appearance normal, both eyes and all related structures Neck Neck: Yes full ROM, Yes no lymphadenopathy and Yes supple Resp Effort & Inspection: normal respiratory effort and able to speak in complete sentences Auscultation: clear to auscultation bilaterally Cardio Rate: regular rate Rhythm: regular rhythm Heart sounds: S1 normal heart sound present and S2 normal heart sound present GI Inspection: Yes normal to inspection Palpation (GI): Soft to palpation, nontender, no guarding and no masses Auscultation: normal bowel sounds Other: Sees Dr. Cabrera General: Yes no CVA tenderness Back/Spine/Pelvis Back: no CVA tenderness and No back tenderness Skin General skin exam: no rashes or lesions noted Neuro General: patient oriented x3, gait normal, moves all extremities and no focal motor deficits Gait exam (Neuro): Normal gait present Extrem General: Yes full ROM, Yes no joint enlargement, Yes no pedal edema and Yes normal gait Psych Appearance: grossly normal and well kempt Mental Status: mental status grossly normal Speech and movement: Normal speech and movement present Affect: normal affect Results Reviewed Results Reviewed: Name: Iman Neal Age/Sex: 44/F : 1980 Unit#: [id number] Attend Dr: Lakia Lindo MD Re03/21/25 Status: DEP [facility]F [facility] Disch: SPEC : [id number] ANGELA: 03/21/25 STATUS: COMP REQ : [id number] RECD: 03/21/[address]: Lakia Lindo MD COMP: 03/21/25 ENTERED: 03/21/[address] [facility] [address]: ORDERED: CBC Auto Diff Test Result Flag Reference WBC 6.6 4.8-10.8 X10*3/uL RBC 4.86 4.20-5.50 X10*6/uL HGB 14.0 12.0-16.0 g/dl HCT 43.1 37.0-47.0 % MCV 88.7 80.0-98.0 fL MCH 28.8 27.0-33.0 pg MCHC 32.5 31.0-35.0 g/dl RDW 12.6 11.0-16.0 % PLT 297 160-400 X10*3/uL MPV 10.1 9.4-12.3 fL Neut Pct Auto 47.6 45-73 % ImGran Pct Auto 2.0 H 0.0-0.4 % Lymp Pct Auto 38.1 20-40 % Bleckley Pct Auto 9.1 2-11 % Eos Pct Auto 2.6 0-4 % Baso Pct Auto 0.6 0-2 % NRBC Pct Auto 0.0 0.0-0.2 /100WBC ANC Neut Abs # 3.1 2.0-8.3 x10*3/uL ImGran Abs Auto 0.13 H 0.00-0.03 X10*3/uL Lymph Abs Auto 2.5 1.2-4.9 X10*3/uL Bleckley Abs Auto 0.6 0.1-1.2 X10*3/uL Eos Abs Auto 0.2 0.0-0.4 X10*3/uL Baso Abs Auto 0.0 0.0-0.2 X10*3/uL NRBC Abs Auto 0.000 0.0-0.012 X10*3/uL Name: Iman Neal Age/Sex: 44/F : 1980 Unit#: [id number] Attend Dr: Lakia Lindo MD Re03/21/25 Status: DEP REF Location: [facility] Disch: SPEC : [id number] ANGELA: 03/21/25 STATUS: COMP REQ : [id number] RECD: 03/21/[address]: Lakia Lindo MD COMP: 03/21/25 ENTERED: 03/21/[address] [facility] [address]: ORDERED: Met Prof Fast, AST, ALT, Lipid Panel, Vitamin D 25-OH Test Result Flag Reference Sodium 140 135-145 mmol/L Potassium 4.1 3.3-5.1 mmol/L CL 105 96-108 mmol/L CO2 27 22-29 mmol/L Gap 12 12-20 BUN 9 9-16 mg/dL Creat 0.61 0.5-1.4 mg/dL eGFR > 60 Chronic Kidney Disease: Estimated GFR < 60 mL/min/1.73m2 Severe Kidney Disease: Estimated GFR < 15 mL/min/1.73m2 FBS 103 H 60-99 mg/dL A fasting glucose from 100-125 mg/dl is considered impaired (pre-diabetes). CA 8.9 8.4-10.2 mg/dL AST (GOT) 19 5-31 U/L ALT (GPT) 17 0-31 U/L Triglyceride 130 <150 mg/dL Desirable Triglyceride: less than 150 mg/dL Borderline High Triglyceride 150-199 mg/dL High Triglyceride: 200-499 mg/dL Very High Triglyceride: greater than or equal to 5OO mg/dL Cholesterol 220 H <200 mg/dL Desirable Cholesterol: less than 200 mg/dL Borderline High Cholesterol: 200-239 mg/dL High Cholesterol: greater than 239 mg/dL LDL Calculated 141 H <100 mg/dL Desirable LDL: less than 100 mg/dL Near Optimal/Above Optimal LDL: 110-129 mg/dL Borderline High LDL: 130-159 mg/dL High LDL: 160-189 mg/dL Very High LDL: greater than or equal to 190 mg/dL HDL 53 >40 mg/dL Desirable HDL: greater than 40 mg/dL Note: This HDL assay may give artificially low results in patients with liver disease. Vitamin D 25-OH 38.7 >30 ng/mL Health Based Reference Values* < 20 ng/mL Deficient 20-30 ng/mL Insufficient > 30 ng/mL Sufficient Coding Level of Care Code Est Pt Prev Care 40-64y(87668) Diagnoses Annual visit for general adult medical examination with abnormal findings Z00.01 Lumbar radiculopathy M54.16 Hyperlipidemia E78.5 Immunity status testing Z01.84 Anxiety and depression F41.9; F32.A Impaired fasting glucose R73.01 Assessment & Plan Assessment & Plan (1) Annual visit for general adult medical examination with abnormal findings: Code(s): Z00.01 - Encounter for general adult medical examination with abnormal findings Plan: Fasting lab results reviewed with patient. Continue with regular dental visit every 6 months and regular eye exams, at least every 2 years. Take adequate calcium in diet and vitamin-D 3 at 2000 IU per cap once a day, in addition to weight-bearing exercises to help maintain good muscle tone and weight control. Instructed to do self-breast exam, and continue to get yearly mammogram. Goes to [facility] for routine Pap and pelvic exam. Up-to-date with her Tdap and gets yearly flu shot but does not want to get a COVID booster (2) Lumbar radiculopathy: Code(s): M54.16 - Radiculopathy, lumbar region Category: Medical Plan: he patient experiences persistent swelling and pain, managed by an orthopedic surgeon and a fuller brush man. Cortisone injections have been recommended to reduce swelling, which she is considering. She finds relief from swimming and is avoiding high-impact activities. She will continue with her current exercise regimen and consider options like acupuncture. She is currently on medical leave from work due to this condition. (3) Hyperlipidemia: Code(s): E78.5 - Hyperlipidemia, unspecified Category: Medical Plan: Cholesterol levels have shown improvement but are still not at the goal of less than 100 mg/dL. She will continue with her diet and exercise plan, including swimming four times weekly, to further manage her cholesterol. (4) Immunity status testing: Code(s): Z01.84 - Encounter for antibody response examination Plan: Ordered titers for mumps measles rubella varicella and hepatitis-B surface antibody quantitative (5) Anxiety and depression: Code(s): F41.9 - Anxiety disorder, unspecified; F32.A - Depression, unspecified Category: Medical Plan: Continued on sertraline 37.5 mg daily (6) Impaired fasting glucose: Code(s): R73.01 - Impaired fasting glucose Category: Medical Plan: Your previous fasting blood sugars were elevated above 100 mg/dL. Impaired glucose metabolism increases the risk for developing diabetes mellitus type 2, as well as heart attack and stroke later on. Lifestyle changes that promotes weight loss, healthy eating habits, and regular exercise are important, and can prevent the progression to diabetes Orders: Orders MMR IgG Measles Mumps Rubella 03/23/25 Z. - Encounter for antibody response examination Varicella IgG Antibody 03/23/25 Z. - Encounter for antibody response examination Hepatitis B Surface Ab Qnt 03/23/25 Z. - Encounter for antibody response examination
== END 2025-03-23 13:04 | disposition home or self-care (01) ==
LOC: HO.HMCC 11:29
PROVIDERS: PCP Internal Medicine; Visit Provider Internal Medicine
DX: Z00.01 Encounter for general adult medical examination with abnormal findings (principal); M54.16 Radiculopathy, lumbar region; E78.5 Hyperlipidemia, unspecified; Z01.84 Encounter for antibody response examination; F41.9 Anxiety disorder, unspecified; F32.A Depression, unspecified; R73.01 Impaired fasting glucose

== ENCOUNTER 2025-03-23 11:28 | Outpatient (REF) | payer OTHER, SELFPAY ==
--- OUTSIDE RECORDS SUMMARY | 2025-03-23 20:15 | XMS_ITS | Clinical Summary ---
Author Organization [facility] Address [address] [place] [phone] Phone Care Team Providers Care Video Surveillance Technician Name Role Phone Lakia Lindo MD Primary Care Provider [phone] Allergies Active Allergy Reactions Criticality Noted Date Comments Doxycycline Nausea And Vomiting, Sleep Issues 11/21/2024 Oxycodone-Acetaminophen Nausea And Vomiting 01/2025 Medications tiZANidine (ZANAFLEX) 2 mg capsule Take 1 capsule (2 mg total) by mouth 3 (three) times a day if needed for muscle spasms for up to 21 doses. 21 capsule 11/21/2024 Active Medical History Medical History Date Comments Depression [...] 07/11/1999 Cervical Cancer Screening: Pap Smear 2001 HPV Vaccines (1 - 3-dose SCDM series) 07/11/2007 HIV Screening 05/08/2023 Hepatitis C Screening 05/08/2023 [...] patient's age to complete this topic Insurance MEDICAID ADVANTAGE Care Teams Video Surveillance Technician Relationship Specialty Start Date End Date Lakia Lindo MD [address] [place] [address] PCP - General Internal Medicine 11/21/24
--- OUTSIDE RECORDS SUMMARY | 2025-03-23 20:16 | XMS_ITS | Encounter Summary ---
Author Organization [facility] Address [address] [place] [id number] Care Team Providers Care Planning Official Name Role Phone Provider, Unknown Primary Care Provider [phone] Geena Damico MD Primary Care Provider Unava ilable Encounter Details Date Type Department Care Team (Late st Contact Info) Description 01/12/2015 Scanned Document [address] [phone] Provider, Generic Social History [...] on filedocumented in this encounter Care Teams Planning Official Relationship Specialty Start Date End Date Provider, Unknown 1 DO NOT USE THIS RECORD PCP - General 12/27/14 06/11/15 Geena Damico MD 1 DO NOT USE THIS RECORD PCP - General Emergency Medicine 06/12/15 documented as of this encounter
--- OUTSIDE RECORDS SUMMARY | 2025-03-23 20:16 | XMS_ITS | Clinical Summary ---
Author Organization [facility] Address [address] [place] [address] Care Team Providers Care Counter Cutter Name Role Phone Geena Damico MD Primary [...] series) 07/11/1999 Pap Smear (Ages 21-65) 2001 Mammogram 2020 Influenza Vaccine 11/12/2024 COVID-19 Vaccine (1 - 2023-2 5 season) 2024 HPV Vaccines (No Doses Required) Completed Pneumococcal Vaccine: Pediat marcus (0-5 Years) and At-Risk Patients (6 to 49 Years) Aged Out No longer eligible b ased on patient's age to complete this topic Insurance [facility] Care Teams Counter Cutter Relationship Specialty Start Date End Date Geena Damico MD PCP - General Emergency Medicine 06/12/15
[2025-03-24 04:47] LABS: Hepatitis B Surface Ab Qnt 238 mIU/mL (> OR = 10)
[2025-03-24 06:48] LABS: Rubeola IgG (Measles) <13.50 AU/mL
== END 2025-03-23 11:29 | disposition home or self-care (01) ==
LOC: HO.HMGCLDS 11:28
PROVIDERS: PCP Internal Medicine; Visit Provider Internal Medicine
DX: Z01.84 Encounter for antibody response examination (principal); Z00.01 Encounter for general adult medical examination with abnormal findings; M54.16 Radiculopathy, lumbar region; E78.5 Hyperlipidemia, unspecified; F41.9 Anxiety disorder, unspecified; F32.A Depression, unspecified; R73.01 Impaired fasting glucose
CPT/HCPCS: 36415; 86317; 86735; 86762; 86765; 86787